=== PATIENT | male | born 1985 | race Caucasian/White ===

== ENCOUNTER 2017-08-27 02:05 | Inpatient (IN) | payer OTHER ==
[2017-08-26 13:50] LABS: PLATELET COUNT, AUTOMATED 282 K/uL (150-450)
[2017-08-27] VITALS (18 sets, daily range): BP systolic 96–125; BP diastolic 62–87
[~2017-08-27] VITALS: Ht 177.8 cm; Wt 98.0 kg
[~2017-08-27 02:05] MED LIST: TRAM100T8 PO
[2017-08-27] MEDS ORDERED: PREGABALIN 150 MG CAPSULE PO ONE (09:50)
[2017-08-27] MEDS ORDERED: ACETAMINOPHEN 500 MG TAB PO ONE (09:50)
[2017-08-27] MEDS ORDERED: CELECOXIB 200 MG CAP PO ONE (09:50)
[2017-08-27] MEDS ORDERED: ROCURONIUM BROM 10 MG/ML 10 ML ONE (10:12)
[2017-08-27] MEDS ORDERED: ONDANSETRON 4 MG/2 ML VIAL ONE (10:12)
[2017-08-27] MEDS ORDERED: SUGAMMADEX SOD 200 MG/2 ML SDV ONE ×2 (10:12→14:10)
[2017-08-27] MEDS ORDERED: fentaNYL CITR 250 MCG/5 ML AMP ONE (10:12)
[2017-08-27] MEDS ORDERED: DEXAMETHASONE SOD 4 MG/ML VIAL ONE (10:12)
[2017-08-27] MEDS ORDERED: LIDOCAINE MPF 1% 5 ML VIAL ONE (10:12)
[2017-08-27] MEDS ORDERED: PROPOFOL EMUL(*) 10MG/ML 20 ML 20 ML ONE (10:12)
[2017-08-27] MEDS ORDERED: KETAMINE HCL 200 MG/20 ML MDV ONE (10:17)
[2017-08-27] MEDS ORDERED: HYDROmorphone HCL 2 MG/ML SDV ONE (10:32)
[2017-08-27] MEDS ORDERED: NORMOSOL R SOLN(*) 1000 ML BAG 1,000 ML IV PRN (11:00)
[2017-08-27] MEDS ORDERED: LIDOCAINE/SOD BICARB 8.4% SYR ID ONE (11:00)
[2017-08-27] MEDS ORDERED: ceFAZolin(*) 2GM/D5W 50ML 50 ML IVPB ONE (11:00)
[2017-08-27] MEDS ORDERED: MIDAZOLAM 2 MG/2 ML VIAL IVP PRN (11:00)
[2017-08-27] MEDS ORDERED: FAMOTIDINE 20 MG TAB PO ONE (11:00)
[2017-08-27] MEDS ORDERED: PROPOFOL(*)1000 MG/100 ML VIAL 100 ML ONE (11:33)
[2017-08-27] MEDS ORDERED: DESFLURANE 240 ML BTL INH ONE (12:51)
[2017-08-27] MEDS ORDERED: PROPOFOL EMUL(*) 10MG/ML 20 ML 40 ML ONE (14:06)
[2017-08-27] MEDS ORDERED: BISACODYL 10 MG SUPP PR PRN (14:30)
[2017-08-27] MEDS ORDERED: ACETAMINOPHEN 500 MG TAB PO PRN (14:30)
[2017-08-27] MEDS ORDERED: LR(*) 1000 ML BAG 1,000 ML IV PRN (14:30)
[2017-08-27] MEDS ORDERED: MAGNESIUM HYDROXIDE* 30ML UDCP PO PRN (14:30)
[2017-08-27] MEDS ORDERED: HYDROmorphone HCL 2 MG/ML SDV IVP PRN (14:30)
[2017-08-27] MEDS ORDERED: ACETAMINOPHEN(*)1000 MG/100 ML 100 ML IVPB PRN (14:30)
[2017-08-27] MEDS ORDERED: FLUSH 10 ML SYR IVP PRN (14:30)
[2017-08-27] MEDS ORDERED: diphenhydrAMINE 25 MG CAP PO PRN (14:30)
[2017-08-27] MEDS ORDERED: fentaNYL CITR 100 MCG/2 ML AMP ONE ×2 (14:53→15:33)
--- NOTE | 2017-08-27 15:25 | RADIOLOGY IMAGING REPORT ---
FACILITY: [facility] PATIENT NAME: Casper Boyle : 1985 MR: [id number] V: [id number] EXAM DATE: ORDERING PHYSICIAN: LAWRENCE VERAS TECHNOLOGIST: Location: [facility] [place] Patient: Casper Boyle : 1985 Visit/Account:[id number] Date of Sevice: 08/27/2017 Technique: C-ARM FLUORO 1 HR HISTORY: L4-S1 ALIF Comparison studies: Lumbar spine MRI January 16, 2016 FINDINGS: 3 operative fluoroscopic images were obtained of the lumbar spine. The patient is status po st anterior interbody fusion at L4-L5 and L5-S1. Fluoroscopy time: 33.0 seconds IMPRESSION: 1. Intraoperative fluoroscopic radiographs as described above. Please see operative report for furth er details. Report Dictated By: August Jameson DO at 08/27/2017 3:20 PM Report E-Signed By: August Jameson DO at 08/27/2017 3:22 PM WSN:[id number]
[2017-08-27] MEDS ORDERED: NAPR-1043 PO (16:43)
[2017-08-27] MEDS ORDERED: TRAM-420 PO (16:43)
--- NOTE | 2017-08-27 17:34 | OPERATIVE REPORT 1 ---
EVENT DATE: August 27, 2017 SURGEON: Ponce Faye MD ANESTHESIOLOGIST: Con Jewell MD ANESTHESIA: General endotracheal anesthesia. ANSWERING SERVICE TELEPHONE OPERATOR: Ross Gordon PA-C ACCESS SURGEON: Tripp Monte MD PREOPERATIVE DIAGNOSIS L4-L5, L5-S1 degenerative disk disease. POSTOPERATIVE DIAGNOSIS L4-L5, L5-S1 degenerative disk disease. PROCEDURE PERFORMED L4-L5 and L5-S1 anterior lumbar interbody fusion. INTRAVENOUS FLUIDS 2100 mL ESTIMATED BLOOD LOSS 40 mL IMPLANTS USED A 12 mm high, 7-degree lordotic, size large, stand alone interbody implant from Titan times two, 4.5 mm x 25 mm locking screws from [employer] times five, and a 4.5 mm x 30 mm screw from [employer] times one. SPECIMENS None. DRAINS None. COMPLICATIONS None. DISPOSITION Post-anesthesia care unit. INDICATIONS FOR SURGERY Mr. Boyle is a 32-year-old male with a very long history of chronic low back pain. He has failed physical therapy, injections, medications, activity modifications, etc. A couple of years ago, he underwent provocative discography with Dr. Leyva, which showed high concordance for pain at the L4- L5 and L5-S1 levels with a negative control at L3-L4. He underwent some facet injections with Dr. Leyva as well, which gave him several days' worth of relief before his pain returned. These were performed at the L4-L5 facets and the L5-S1 facets. Mr. Boyle is a nonsmoker with no concomitant mental health issues and modic changes seen on MRI at the L5-S1 level, less so at L4-L5. There was no compression of any of the neural elements, but both of those disks were desiccated with disk height loss while the adjacent disks had normal hydration and no evidence of degeneration. Secondary to his ongoing pain and failure of nonsurgical care, Mr. Boyle was offered and elected to undergo L4-L5 and L5-S1 anterior lumbar interbody fusion. Prior to surgery, I explained in detail to the patient the possible risks of surgery. These include bleeding, infection, damage to surrounding structures, bowel injury, bladder injury, great vessel injury, nerve root injury, persistent and/or worsening pain, sexual dysfunction, autonomic nervous system dysfunction, , blindness, and other unforeseen medical and surgical complications. An understanding that spinal surgery is more predictive at improving extremity discomfort than axial spine pain was stressed. In this case in particular, we discussed the expected outcomes from a two-level anterior lumbar interbody fusion, noting the relatively poor overall results from said surgery. DESCRIPTION OF PROCEDURE On the date of surgery, the patient was met in the preoperative hold area, and all questions were answered. The operative site was identified and marked by myself. Patient was brought in good condition to the operating room, and after identification of the patient, the operative site, and the intended surgical levels, he was prepped and draped in the standard sterile orthopedic fashion. Dr. Monte, our access surgeon, provided excellent access to both the L4-L5 and the L5-S1 disk spaces. Please refer to his description of that portion of the procedure. Once the disk spaces were exposed, we started with the L4-L5 level. A knife was used to incise the anterior annulus the discal material from the endplates and Sharpey fibers. The sharp Fierro elevator was then used to separate the discal fragments from the underlying subchondral bone. The disk was removed primarily en bloc, and then a combination of curettes and ring curettes were used to remove the remainder of the cartilaginous remnants on the endplates. A 12 mm, 7-degree lordotic trial was placed in the interbody space and a lateral radiograph obtained appropriate size and fit. The 12 mm high, 7- degree lordotic size large implant was then chosen and packed with the ViBone. This was then inserted into the disk space and countersunk a couple of millimeters. The awl was used through the holes in the implant to penetrate the endplates, and then fixation screws were placed, two into the L4 body and one into the L5 body. Radiographs obtained excellent positioning. Retractors were then moved, and attention turned to the L5 level where discectomy was performed in the same fashion as at L4-L5. Again, we elected to use a 12 mm, 7- degree lordotic implant, which again was countersunk a couple of millimeters. Two screws were placed into L5 and one into S1. Final radiographs were obtained that showed excellent positioning of the implants. The wound was irrigated with copious sterile saline solution and then closed in layers using a running stitch for the muscular fascial layer and then inverted interrupted sutures for the subcutaneous tissue, and then a running subcuticular skin stitch. Sponge and needle counts were correct times two. POSTOPERATIVE CARE PLAN The patient will remain in house overnight and likely be discharged home on postoperative day 1. We will see him in followup two weeks postoperatively for a wound check and examination. SE
[2017-08-27] MEDS: APAP/HYDROCODONE 325/5 TAB PO PRN ×2 (17:43→23:25)
[2017-08-27] MEDS: BENZOCAINE/MENTHOL 1 EACH LOZG PO PRN (18:36)
[2017-08-27] MEDS: DIAZEPAM 5 MG TAB PO PRN (18:37)
[2017-08-27] MEDS: ONDANSETRON 4 MG/2 ML VIAL IVP PRN (19:18)
--- NOTE | 2017-08-27 19:18 | Hospitalist Consultation ---
History of Present Illness Requesting Physician Dr. Faye Reason for Consult Lumbar surgery History of Present Illness This patient was admitted for lumbar fusion. It is reported that the surgery went well and was without complication. History Problems: (1) No significant medical problems Home Meds Reported Medications Naproxen Sodium (ALEVE) 220 Mg Tablet, 3 TAB PO BID Y for PAIN, TAB 08/27/17 Tramadol Hcl (TRAMADOL HCL) 50 Mg Tablet, 50 MG PO Q4-6H Y for PAIN, TAB 08/27/17 Discontinued Reported Medications Tramadol Hcl (TRAMADOL HCL) 100 Mg Tab.er.24h, PO Q4H Y for PAIN, TAB 08/20/17 Allergies: Coded Allergies: No Known Drug Allergies (Unverified , 08/20/17) Patient History: Patient reports no known family medical history. Hx Smoking: No Caffeine Intake: Coffee Caffeine/Cups Per Day: 4-5 CUPS A DAY Hx Substance Use Disorder: No Social Drug Use: Never Review of Systems All Systems Reviewed/Normal: Yes Exam Vital Signs Vital Signs Date Time Temp Pulse Resp B/P (MAP) Pulse Ox O2 Delivery O2 Flow Rate FiO2 08/27/17 18:00 68 96/83 (87) 96 Nasal Cannula 2.0 08/27/17 16:19 97.6 12 Neuro: No Gross deficits Eyes: PERRLA Cardiovascular: Regular Rate and Rhythm Respiratory: Clear to Auscultation Extremities: No Edema Integumentary: No Cyanosis Medical Decision Making Data Points Result Diagram: 08/26/17 1343 Assessment and Plan Problems: (1) S/P lumbar spinal fusion Assessment & Plan: We will monitor for any acute medical issues. Venous Thromboembolism Antithrombotics Is Pt On Any Antithrombotics?: No Exam Sepsis Risk: No Definite Risk BETSEY ESPINO DO August 27, 2017 19:18
[2017-08-27] MEDS: ceFAZolin(*) 2GM/D5W 50ML 50 ML IVPB SCH (19:37)
[2017-08-27] MEDS: DOCUSATE SODIUM 100 MG CAP PO SCH (20:45)
[2017-08-27] MEDS: oxyCODONE HCL 5 MG CAP PO PRN (20:45)
[2017-08-28] MEDS: BENZOCAINE/MENTHOL 1 EACH LOZG PO PRN (00:14)
[2017-08-28 03:43] VITALS: BP 115/74
[2017-08-28] MEDS: APAP/HYDROCODONE 325/5 TAB PO PRN (03:49)
[2017-08-28] MEDS: ceFAZolin(*) 2GM/D5W 50ML 50 ML IVPB SCH ×2 (03:56→11:42)
[2017-08-28] MEDS: DIAZEPAM 5 MG TAB PO PRN (03:59)
[2017-08-28] MEDS: ONDANSETRON 4 MG/2 ML VIAL IVP PRN (06:13)
[2017-08-28 08:45] VITALS: BP 108/61
[2017-08-28] MEDS: DOCUSATE SODIUM 100 MG CAP PO SCH (08:52)
[2017-08-28] MEDS: oxyCODONE HCL 5 MG CAP PO PRN (09:41)
[2017-08-28 09:51] VITALS: Ht 177.8 cm; Wt 98.0 kg
--- NOTE | 2017-08-28 10:25 | Hospitalist Progress Note ---
Subjective Progress Notes Subjective The patient noticed some bruising of his scrotum. Mild pain. No difficulty with urination. Physical Exam Vital Signs Date Time Temp Pulse Resp B/P (MAP) Pulse Ox O2 Delivery O2 Flow Rate FiO2 08/28/17 08:45 97.8 82 14 108/61 (77) 93 Room Air 08/28/17 03:43 1.0 Intake and Output 08/29/17 07:00 Intake Total 240 ml Balance 240 ml Intake Oral 240 ml General Appearance: Alert, Awake, No Acute Distress : Other (1cm diameter area of bruising over left scrotum and another 1cm diameter bruising at inferior left scrotum. No left testicular pain or swelling.) Result Diagram: 08/26/17 1343 Assessment and Plan Problems: (1) S/P lumbar spinal fusion Assessment & Plan: We will monitor for any acute medical issues. He has some bruising in the left scrotum. It is mild and not tender. No evidence of torsion. Likely, related to blood traversing tissue planes or some inadvertent surgical trauma. He was given reassurance and told to call Dr. Faye if he has worsening pain or bruising. Exam Sepsis Risk: No Definite Risk NISH JAMES MD August 28, 2017 10:25
[2017-08-28] MEDS ORDERED: OXYC-865 PO (12:40)
[2017-08-28] MEDS ORDERED: DOCU240C84 PO (12:41)
[2017-08-28] MEDS ORDERED: DIA5 PO (12:41)
== END 2017-08-28 14:30 | disposition home or self-care (01) | DRG 460 ==
LOC: OR 02:05 → MED 16:15
PROVIDERS: ADMIT Orthopaedic Surgery; ATTEND Orthopaedic Surgery
PROC: 0SG30A0 Fusion of Lumbosacral Joint with Interbody Fusion Device, Anterior Approach, Anterior Column, Open Approach (ICD-10-PCS; 2017-08-27)
PROC: 0ST20ZZ Resection of Lumbar Vertebral Disc, Open Approach (ICD-10-PCS; 2017-08-27)
PROC: 0ST40ZZ Resection of Lumbosacral Disc, Open Approach (ICD-10-PCS; 2017-08-27)
PROC: 0SG00A0 Fusion of Lumbar Vertebral Joint with Interbody Fusion Device, Anterior Approach, Anterior Column, Open Approach (ICD-10-PCS; principal; 2017-08-27 12:06)
DX: M51.36 Other intervertebral disc degeneration, lumbar region (principal); M51.37 Other intervertebral disc degeneration, lumbosacral region; S30.22XA Contusion of scrotum and testes, initial encounter
CPT/HCPCS: 36415; 76000; 85025; 86850; 86900; 86901; 97161; C1713; J0690; J1100; J1170; J2001; J2250; J2405; J2704; J3010; J3490